=== PATIENT | male | born 1965 | race African-American/Black ===

== ENCOUNTER 2016-11-14 04:35 | Emergency (ER) | payer OTHER ==
[~2016-11-14] VITALS: Ht 182.9 cm; Wt 117.7 kg
[~2016-11-14 04:35] MED LIST: ATEN25TA2 PO
[2016-11-14 04:42] VITALS: BP 145/90
--- NOTE | 2016-11-14 04:53 | NUR ---
TO ER BED 4
--- NOTE | 2016-11-14 04:54 | NUR ---
PATIENT PRESENTS TO ED WITH C/O SORE THROAT X 3 WEEKS WITH DIARRHEA X 2 DAYS . PT STATES HE COUGHS AND YELLOW PHELGM COMES UP. SKIN IS PINK/WARM/DRY; AAOX4 WITH EVEN AND STEADY GAIT; LUNGS CLEAR BL; HR EVEN AND REGULAR; PT DENIES ANY FEVER, CP, SOB, AT THIS TIME; PATIENT STATES PAIN OF 4/10 AT THIS TIME; VSS; PATIENT POSITIONED FOR COMFORT; HOB ELEVATED; BEDRAILS UP X2; BED DOWN. ER MD MADE AWARE OF PT STATUS.
[2016-11-14] MEDS: PROMETH/CODEINE 6.25-10MG/5ML 5 ML UDC PO ONE (05:12)
[2016-11-14] MEDS: ALBUTEROL SULFATE/IPRATROPIU 3 ML SOL IH ONE (05:40)
[2016-11-14 06:09] LABS: BASOPHILS # (AUTO) 0.1 K/uL (0.00-0.22); BASOPHILS % (AUTO) 0.9 % (0.0-2.0); EOSINOPHILS # (AUTO) 0.3 K/uL (0-0.4); EOSINOPHILS % (AUTO) 3.6 % (0.0-4.0); HEMATOCRIT 42.6 % (36-52); HEMOGLOBIN 14.1 g/dL (12.0-18.0); LYMPHOCYTES # (AUTO) 1.7 K/uL (2.0-11.5); LYMPHOCYTES % (AUTO) 18.8 % (20.5-51.1); MEAN CORPUSCULAR HEMOGLOBIN 29 pg (27-31); MEAN CORPUSCULAR HGB CONC 33 g/dL (33-37); MEAN CORPUSCULAR VOLUME 87 fL (80-94); MONOCYTES # (AUTO) 0.6 K/uL (0.8-1.0); NEUTROPHILS # (AUTO) 6.5 K/uL (1.8-7.7); NEUTROPHILS % (AUTO) 70.7 % (42.2-75.2); PLATELET COUNT (AUTO) 275 K/uL (140-450); RED BLOOD CELL COUNT(AUTO) 4.92 MIL/uL (4.20-6.10); RED CELL DISTRIBUTION WIDTH 14.5 % (11.6-13.7); WHITE BLOOD COUNT (AUTO) 9.2 K/uL (4.8-10.8)
[2016-11-14 06:21] LABS: ANION GAP 12.1 (8-16); CALCIUM 8.6 mg/dL (8.5-10.1); CARBON DIOXIDE 28.9 mmol/L (21-32); CREATININE 1.3 mg/dL (0.6-1.3)
[2016-11-14 06:26] LABS: ALBUMIN 3.5 g/dL (3.4-5.0); TOTAL BILIRUBIN 0.2 mg/dL (0.0-1.0); TOTAL PROTEIN, SERUM 7.6 g/dL (6.4-8.2)
[2016-11-14] MEDS: NACL 0.9% 1,000 ML IV ONE (06:42)
[2016-11-14 06:58] VITALS: BP 145/90
--- NOTE | 2016-11-14 06:58 | NUR ---
Patient discharged with v/s stable. Written and verbal after care instructions given and explained. Patient alert, oriented and verbalized understanding of instructions. Ambulatory with steady gait. All questions addressed prior to discharge. ID band removed. Patient advised to follow up with PMD OR RETURN TO ER IF CONDITION WORSENS. Rx of AZITHROMYCIN,PREDNISONE, CODEINE PHOSPHATE AND ALBUTEROL given. Patient educated on indication of medication including possible reaction and side effects. Opportunity to ask questions provided and answered.
== END 2016-11-14 06:58 | disposition home or self-care (01) ==
LOC: MED 04:35
DX: J20.9 Acute bronchitis, unspecified (principal); I10 Essential (primary) hypertension; F17.210 Nicotine dependence, cigarettes, uncomplicated; Z90.49 Acquired absence of other specified parts of digestive tract; Z88.8 Allergy status to other drugs, medicaments and biological substances
CPT/HCPCS: 36415; 71010; 80053; 83880; 84484; 85025; 85379; 93005; 94640; 99285; J7030; J7620; Q0092

== ENCOUNTER 2017-11-26 05:10 | Emergency (ER) | payer OTHER ==
[~2017-11-26] VITALS: Ht 182.9 cm; Wt 120.4 kg
[2017-11-26 05:30] VITALS: BP 184/94
--- NOTE | 2017-11-26 05:34 | NUR ---
PT AMBULATED TO BED 2
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
--- NOTE | 2017-11-26 05:53 | NUR ---
Dr. Barron evaluating patient at bedside.
[2017-11-26] MEDS ORDERED: BACITRACIN OINT 500 UNITS/GM PKT TP ONE ×2 (06:05→06:06)
[2017-11-26 06:18] VITALS: BP 147/91
--- NOTE | 2017-11-26 06:18 | NUR ---
Patient discharged with v/s stable. Written and verbal after care instructions given and explained. Patient alert, oriented and verbalized understanding of instructions. Ambulatory with steady gait. All questions addressed prior to discharge. ID band removed. Patient advised to follow up with PMD. Rx of NORCO, BACITRACIN given. Patient educated on indication of medication including possible reaction and side effects. Opportunity to ask questions provided and answered.
== END 2017-11-26 06:18 | disposition home or self-care (01) ==
LOC: MED 05:10
DX: S51.801A Unspecified open wound of right forearm, initial encounter (principal); I10 Essential (primary) hypertension; Z76.0 Encounter for issue of repeat prescription; Z88.8 Allergy status to other drugs, medicaments and biological substances; W34.00XA Accidental discharge from unspecified firearms or gun, initial encounter; Y93.89 Activity, other specified; Y99.8 Other external cause status; Y92.89 Other specified places as the place of occurrence of the external cause
CPT/HCPCS: 99283

== ENCOUNTER 2019-06-27 20:19 | Emergency (ER) | payer OTHER ==
[~2019-06-27] VITALS: Ht 182.9 cm; Wt 115.7 kg
[2019-06-27 20:20] VITALS: BP 156/100
--- NOTE | 2019-06-27 20:20 | NUR ---
TO CHAIR A AMBULATORY
--- NOTE | 2019-06-27 20:32 | NUR ---
54 Y/O MALE C/O BODY ACHES, HEADACHE, COUGH/CONGESTION X 3 DAYS. PT STATES PRODUCTIVE COUGH W/ GREEN SPUTUM. SOB PROVOKED BY COUGH. PT STATES SYMPTOMS WORSE IN THE MORNING. DENIES FEVER. RR EVEN AND UNLABORED. DENIES N/V/D. PT SITTING UPRIGHT IN CARLOS WITH EYES CLOSED. VSS. MEDHX: HTN ALLERGIES: IBURPROFEN
--- NOTE | 2019-06-27 21:00 | NUR ---
ZULMA SUAREZ AT [facility] EVALUATING PT
[2019-06-27] MEDS ORDERED: ONDANSETRON 4 MG ODT PO ONE (21:30)
[2019-06-27] MEDS ORDERED: KETOROLAC 60 MG/2 ML VIAL IM ONE (21:30)
--- NOTE | 2019-06-27 21:42 | NUR ---
PT DISCHARGED BEFORE MEDICATIONS COULD BE RE-EVLAUATED, STATES HE HAS HAD BOTH MEDICATIONS IN THE PAST.
[2019-06-27 21:43] VITALS: BP 156/100
--- NOTE | 2019-06-27 21:43 | NUR ---
DPatient discharged with v/s stable. Written and verbal after care instructions given and explained. Patient alert, oriented and verbalized understanding of instructions. Ambulatory with steady gait. All questions addressed prior to discharge. ID band removed. Patient advised to follow up with PMD. Rx of DIABETIC TUSSIN, ACETAMINOHPEN, AND TAMIFLU given. Patient educated on indication of medication including possible reaction and side effects. Opportunity to ask questions provided and answered.
== END 2019-06-27 21:43 | disposition home or self-care (01) ==
LOC: MED 20:19
DX: B34.9 Viral infection, unspecified (principal); I10 Essential (primary) hypertension; F17.210 Nicotine dependence, cigarettes, uncomplicated; Z79.899 Other long term (current) drug therapy; Z88.8 Allergy status to other drugs, medicaments and biological substances
CPT/HCPCS: 96372; 99283; J1885; Q0162

== ENCOUNTER 2020-03-12 04:35 | Emergency (ER) | payer OTHER ==
[~2020-03-12] VITALS: Ht 182.9 cm; Wt 113.9 kg
[2020-03-12 04:40] VITALS: BP 159/95
--- NOTE | 2020-03-12 04:40 | NUR ---
54 Y/O MALE PRESENTS TO ER WITH LOWER BACK PAIN X 8RS. 9/10 PAIN. PT STATES HE HAS PMH OF LBP, AND ANXIETY. PT STATES RADIATING PAIN FROM LOWER BACK TO FEET, AND ANXIETY THAT HAS LINGERED FOR THE PAST FEW MONTHS. DENIES SI/HI, SOB, COUGH, N/V/D, FEVER, HEADACHE. A&OX4, VSS, R/R EQUAL, AND UNLABORED. PMH: HTN, ANXIETY, LBP ALLERGY: IBUPROFEN
[2020-03-12] MEDS: diazePAM 5 MG TAB PO ONE (05:22)
--- NOTE | 2020-03-12 05:39 | NUR ---
PT APPEARS TO BE SLEEPING IN BED. VSS, R/R EQUAL, AND UNLABORED. SIDE RAIL X1, BED IN LOW POSITION, WILL CONTINUE TO MONITOR.
[2020-03-12 06:26] VITALS: BP 159/95
--- NOTE | 2020-03-12 06:26 | NUR ---
Patient discharged with v/s stable. Written and verbal after care instructions given and explained. Patient alert, oriented and verbalized understanding of instructions. Ambulatory with to car. All questions addressed prior to discharge. ID band removed. Patient advised to follow up with PMD. Rx of VALIUM given. Patient educated on indication of medication including possible reaction and side effects. Opportunity to ask questions provided and answered.
== END 2020-03-12 06:26 | disposition home or self-care (01) ==
LOC: MED 04:35
DX: M54.5 Low back pain (principal); I10 Essential (primary) hypertension; Z88.6 Allergy status to analgesic agent; Z79.899 Other long term (current) drug therapy
CPT/HCPCS: 99283

== ENCOUNTER 2022-04-29 14:38 | Emergency (ER) | payer OTHER ==
[~2022-04-29] VITALS: Ht 182.9 cm; Wt 122.5 kg
[2022-04-29 14:57] VITALS: BP 154/95
[2022-04-29] MEDS ORDERED: GABAPENTIN 300 MG CAP PO ONE (18:55)
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
[2022-04-29] MEDS ORDERED: CEPH-588 PO (20:32)
[2022-04-29] MEDS ORDERED: GABA300C PO (20:33)
[2022-04-29] MEDS ORDERED: GABAPENTIN 300 MG CAP ONE (20:43)
[2022-04-29 20:45] VITALS: BP 120/78
--- NOTE | 2022-04-29 20:45 | NUR ---
Patient discharged with v/s stable. Written and verbal after care instructions given and explained. Patient alert, oriented and verbalized understanding of instructions. Ambulatory with steady gait. All questions addressed prior to discharge. ID band removed. Patient advised to follow up with PMD. Rx of KEFLEX,GABAPENTIN given. Patient educated on indication of medication including possible reaction and side effects. Opportunity to ask questions provided and answered.
== END 2022-04-29 20:45 | disposition home or self-care (01) ==
LOC: MED 14:38
DX: L03.115 Cellulitis of right lower limb (principal); I10 Essential (primary) hypertension; Z79.899 Other long term (current) drug therapy
CPT/HCPCS: 73610; 93971; 99284; Q0092

== ENCOUNTER 2022-07-08 03:25 | Emergency (ER) | payer OTHER ==
[~2022-07-08] VITALS: Ht 182.9 cm; Wt 122.5 kg
[~2022-07-08 03:25] MED LIST changes: +CEPH-588 PO; +GABA300C PO
[2022-07-08 04:03] VITALS: BP 203/120
--- NOTE | 2022-07-08 04:07 | NUR ---
TO LOBBY A/W BED AMBULATORY
[2022-07-08] MEDS ORDERED: LORazepam 1 MG TAB PO ONE (04:10)
--- NOTE | 2022-07-08 04:10 | NUR ---
SEEN AND EXAMINED BY RICCO
[2022-07-08] MEDS ORDERED: LORazepam 1 MG TAB ONE (04:16)
--- NOTE | 2022-07-08 04:18 | NUR ---
Dr. Raygoza examining patient.
[2022-07-08] MEDS ORDERED: HYDR-637 PO (04:56)
[2022-07-08 05:00] VITALS: BP 203/120
--- NOTE | 2022-07-08 05:00 | NUR ---
Patient discharged with v/s stable. Written and verbal after care instructions given and explained. Patient alert, oriented and verbalized understanding of instructions. Ambulatory with steady gait. All questions addressed prior to discharge. ID band removed. Patient advised to follow up with PMD. Rx of HYDROXYZINE HYDROCHLORIDE given. Patient educated on indication of medication including possible reaction and side effects. Opportunity to ask questions provided and answered.
== END 2022-07-08 05:00 | disposition home or self-care (01) ==
LOC: MED 03:25
DX: F41.9 Anxiety disorder, unspecified (principal); I10 Essential (primary) hypertension; Z79.899 Other long term (current) drug therapy; Z88.6 Allergy status to analgesic agent
CPT/HCPCS: 99283